=== PATIENT | female | born 1975 | race African-American/Black ===

== ENCOUNTER → 2019-04-20 11:45 | Outpatient (CLI) | payer BC, SELFPAY ==
--- NOTE | ~2019-04-20 | MR_ITS ---
EXAMINATION: MR lumbar spine wo con EXAM DATE: 04/20/2019 12:31 INDICATION: Lumbar radiculopathy. Low back pain. TECHNIQUE: Multi-sequential, multiplanar MR images of the lumbar spine were obtained without contrast . Sagittal T1, T2, T2 fat saturation images. Axial T2 weighted images. There is no prior study for comparison. FINDINGS: There are sizable hemangioma within the L1 vertebral body. Tiny annular fissure at L5-S1 wi th 2-3 mm retrolisthesis. The vertebral bodies are otherwise aligned. The vertebral body and disc hei ghts are otherwise well maintained. Paraspinal soft tissue is unremarkable. The conus medullaris term inates at the L1 level and has normal signal intensity and morphology. Level by level evaluation: T12-L1: Disc does not extend beyond the endplate margin. Facet arthropathy: Mild. Neural foraminal stenosis: No stenosis. Central canal stenosis: No stenosis. L1-L2: Disc does not extend beyond the endplate margin. Facet arthropathy: Mild. Neural foraminal stenosis: No stenosis. Central canal stenosis: No stenosis. L2-L3: Disc does not extend beyond the endplate margin. Facet arthropathy: Mild. Neural foraminal stenosis: No stenosis. Central canal stenosis: No stenosis. L3-L4: Disc does not extend beyond the endplate margin. Facet arthropathy: Mild. Neural foraminal stenosis: No stenosis. Central canal stenosis: No stenosis. L4-L5: There is a minimal diffuse disc bulge. Facet arthropathy: Mild. Neural foraminal stenosis: Minimal bilateral. Central canal stenosis: No stenosis. L5-S1: There is mild disc bulge asymmetric to the right Facet arthropathy: Mild to moderate right, mild left. Neural foraminal stenosis: Mild to moderate right, mild left. Central canal stenosis: No stenosis. IMPRESSION: 1. Overall mild lumbar spondylosis as detailed above. Reviewed, dictated and finalized at location B. 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
== END ==
PROVIDERS: Visit Provider Nurse Practitioner Adult Health
DX: M54.17 Radiculopathy, lumbosacral region (principal); M47.896 Other spondylosis, lumbar region
CPT/HCPCS: 72148

== ENCOUNTER 2019-12-04 11:44 | Outpatient (CLI) | payer BC, SELFPAY ==
--- NOTE | ~2019-12-04 | MM_ITS ---
EXAMINATION: MM screening [facility] HISTORY: Screening mammogram TECHNIQUE: Craniocaudal and mediolateral oblique 3-D tomosynthesis images were obtained and synthetic 2-D images were generated. CAD analysis was submitted and interpreted. COMPARISON: 11/03/2017 bilateral digital screening mammogram 04/23/2012 bilateral diagnostic digital mammography and right breast ultrasound; 10/22/2012 right breas t ultrasound BREAST PARENCHYMAL COMPOSITION: There are scattered areas of fibroglandular density. FINDINGS: There are 2 stable approximately 1 cm circumscribed opacity situated anteriorly in the uppe r outer quadrant of the left breast, not changed since 11/03/2017 or , likely benign lymph n odes There is no evidence of suspicious mass, calcification, or architectural distortion to suggest m alignancy in either breast. There has been no suspicious interval change. IMPRESSION: 1. No mammographic evidence of malignancy. 2. Recommend routine screening mammography in one year. BI-RADS Category 2: Benign finding(s). Reviewed, dictated and finalized at location D.
== END 2019-12-04 11:45 | disposition home or self-care (01) ==
LOC: ANHIMG 11:47
PROVIDERS: PCP Internal Medicine; Visit Provider Obstetrics & Gynecology
DX: Z12.31 Encounter for screening mammogram for malignant neoplasm of breast (principal)
CPT/HCPCS: 77063; 77067

== ENCOUNTER 2020-03-24 08:23 | Outpatient (NON) | payer BC, SELFPAY ==
[2020-03-25 00:16] LABS: SARS-CoV-2 RNA PCR Negative
== END 2020-03-24 08:24 ==
LOC: ANHCOVIDDT 08:24
PROVIDERS: PCP Internal Medicine; Visit Provider Physician Assistant
DX: R68.89 Other general symptoms and signs (principal); Z20.822 Contact with and (suspected) exposure to COVID-19
CPT/HCPCS: C9803; U0003; U0005

== ENCOUNTER 2020-12-17 17:29 | Outpatient (CLI) | payer BC, SELFPAY ==
--- NOTE | ~2020-12-17 | MM_ITS ---
EXAMINATION: MM screening [facility] BI w [place] HISTORY: Screening mammogram TECHNIQUE: Craniocaudal and mediolateral oblique 3-D tomosynthesis images were obtained and synthetic 2-D images were generated. CAD analysis was submitted and interpreted. COMPARISON: 12/04/2019, 11/03/2017, 06/24/2013 BREAST PARENCHYMAL COMPOSITION: There are scattered areas of fibroglandular density. FINDINGS: Stable bilateral breast masses are considered benign given the lack of interval change. The re is no evidence of suspicious mass, calcification, or architectural distortion to suggest malignanc y in either breast. There has been no suspicious interval change. IMPRESSION: 1. No mammographic evidence of malignancy. 2. Recommend routine screening mammography in one year. BI-RADS Category 2: Benign finding(s). Reviewed, dictated and finalized at location A.
== END 2020-12-17 17:30 | disposition home or self-care (01) ==
LOC: ANHIMG 17:31
PROVIDERS: PCP Physician Assistant; Visit Provider Obstetrics & Gynecology
DX: Z12.31 Encounter for screening mammogram for malignant neoplasm of breast (principal)
CPT/HCPCS: 77063; 77067

== ENCOUNTER 2022-01-07 13:48 | Outpatient (CLI) | payer BC, SELFPAY ==
[2022-01-07 14:20] LABS: Influenza Control Positive
[2022-01-07 14:46] LABS: SARS-CoV-2 RNA PCR Negative
== END 2022-01-07 13:49 | disposition home or self-care (01) ==
PROVIDERS: PCP Physician Assistant; Visit Provider Physician Assistant
DX: R68.89 Other general symptoms and signs (principal); Z01.812 Encounter for preprocedural laboratory examination
CPT/HCPCS: 87804; U0003; U0005

== ENCOUNTER 2022-01-29 10:57 | Emergency (ER) | payer BC, SELFPAY ==
[2022-01-29 11:47] VITALS: BP 144/83; PULSE 92; RESP 16; TEMP 36.4; O2SAT 99
--- NOTE | 2022-01-29 12:32 | ED.GENADULT ---
HPI - General Adult General Chief complaint: Upper Respiratory Infection Stated complaint: uri Time Seen by Provider: 01/29/22 12:33 Source: patient Mode of arrival: ambulatory Limitations: no limitations Related Data Home Medications Medication Instructions Recorded Confirmed multivitamin (Multiple Vitamins 1 tablet PO DAILY 02/18/19 01/14/22 tablet) vitamin E (dl, acetate) 45 mg (100 100 unit PO DAILY 02/18/19 01/14/22 unit) capsule Allergies Allergy/AdvReac Type Severity Reaction Status Date / Time Penicillins Allergy Intermediate Itching,mateo Verified 01/14/22 13:58 lucinations [facility] Past Medical History Medical History Depression Ectopic Hypertension Surgical History Surgical History H/O: hysterectomy History of tonsillectomy Previous section Social History Social History Smoking status: Never smoker Second hand tobacco smoke exposure: No Alcohol intake: never Lack of Transportation: No Lack of Food: Never True Current Housing: I Have Housing Concerned About Future Housing: No Difficulty Paying Gas/Electric Bills: No Difficulty Paying for Meds: No Currently Unemployed: No Education: Master's Degree or Higher Difficulty w/ Childcare or Family Care: No Comments At the time of my signature I agree with nursing past medical history, surgical, social, and family history. There is no relevant family history pertinent to the presenting complaint. Exam Narrative: GENERAL: Well-appearing, well-nourished, and in no acute distress. HEAD: Normocephalic, atraumatic. EYES: PERRLA and EOMI. ENT: Nares clear, no rhinorrhea or epistaxis. Mucous membranes moist. NECK: Supple. No lymphadenopathy CHEST: Clear to auscultation. No respiratory distress. HEART: Regular rate and rhythm. No murmur heard. Normal peripheral pulses. ABDOMEN: Soft, nontender, nondistended, normal active bowel sounds. EXTREMITIES: Normal range of motion. No edema. SKIN: Warm, dry, no rash. NEURO: No focal deficits. Alert and oriented x3. Course Course Level of Care: Express Care Visit Vital Signs Vital signs: Vital Signs Temperature 36.4 C L 01/29/22 11:47 Pulse Rate 92 01/29/22 11:47 Respiratory Rate 16 01/29/22 11:47 Blood Pressure 144/83 H 01/29/22 11:47 Pulse Oximetry 99 01/29/22 11:47 Oxygen Delivery Room Air 01/29/22 11:47 Temperature 36.4 C L 01/29/22 11:47 Pulse Rate 92 01/29/22 11:47 Respiratory Rate 16 01/29/22 11:47 Blood Pressure 144/83 H 01/29/22 11:47 Pulse Oximetry 99 01/29/22 11:47 Oxygen Delivery Room Air 01/29/22 11:47 Vital signs reviewed The patient has been informed that they may have pre-hypertension or Hypertension based on a BP reading in the department. I recommend that the patient call the primary care provider listed on their discharge instructions or a physician of their choice this week to arrange follow up for further evaluation of possible pre-hypertension or Hypertension Medical Decision Making Differential Diagnosis Differential Diagnosis: Differential diagnosis: Allergic rhinitis, chronic sinusitis, tonsillitis, acute sinusitis, infectious mononucleosis, seasonal influenza, pertussis, diphtheria, meningococcal disease, viral syndrome, viral bronchitis, RSV, COVID-19 Vital Signs Vital Signs: Vital Signs Temperature 36.4 C L 01/29/22 11:47 Pulse Rate 92 01/29/22 11:47 Respiratory Rate 16 01/29/22 11:47 Blood Pressure 144/83 H 01/29/22 11:47 Pulse Oximetry 99 01/29/22 11:47 Oxygen Delivery Room Air 01/29/22 11:47 Temperature 36.4 C L 01/29/22 11:47 Pulse Rate 92 01/29/22 11:47 Respiratory Rate 16 01/29/22 11:47 Blood Pressure 144/83 H 01/29/22 11:47 Pulse Oximetry 99 01/29/22 11:47 Oxygen Delivery Room A
--- NOTE | 2022-01-29 12:40 | ED.GENADULT ---
HPI - General Adult General Chief complaint: Upper Respiratory Infection Stated complaint: uri Time Seen by Provider: 01/29/22 12:33 Source: patient Mode of arrival: ambulatory Limitations: no limitations History of Present Illness HPI narrative: 6-year-old female patient to [facility] with complaints of flu-like symptoms that started last night. Patient states they were worse when she woke up today. Patient states she has had congestion, runny nose, headache, sore throat, cough, body aches and chills. Unknown if she has had a fever states she has not taken her fever. Patient states she is vaccinated against COVID but has not been vaccinated against flu yet. Denies taking any medications prior to arrival. Related Data Home Medications Medication Instructions Recorded Confirmed multivitamin (Multiple Vitamins 1 tablet PO DAILY 02/18/19 01/14/22 tablet) vitamin E (dl, acetate) 45 mg (100 100 unit PO DAILY 02/18/19 01/14/22 unit) capsule Allergies Allergy/AdvReac Type Severity Reaction Status Date / Time Penicillins Allergy Intermediate Itching,mateo Verified 01/14/22 13:58 lucinations Review of Systems Review of Systems: CONSTITUTIONAL: Denies fever, positive chills, or sweats. EYES: Denies visual changes, redness, or discharge. ENT: Positive rhinorrhea, congestion, sore throat, and otalgia. CARDIOVASCULAR: Denies chest pain, palpitations, or edema. RESPIRATORY: Positive cough, denies dyspnea. GASTROINTESTINAL: Denies abdominal pain, nausea, vomiting, or diarrhea. GENITOURINARY: Denies dysuria or hematuria. SKIN: Denies rash or itching. MUSCULOSKELETAL: Denies back pain, joint pain, or myalgia. NEUROLOGIC: Positive headache, denies numbness, or weakness. PSYCHIATRIC: Denies anxiety or depression. [facility] Past Medical History Medical History Depression Ectopic Hypertension Surgical History Surgical History H/O: hysterectomy History of tonsillectomy Previous section Social History Social History Smoking status: Never smoker Second hand tobacco smoke exposure: No Alcohol intake: never Lack of Transportation: No Lack of Food: Never True Current Housing: I Have Housing Concerned About Future Housing: No Difficulty Paying Gas/Electric Bills: No Difficulty Paying for Meds: No Currently Unemployed: No Education: Master's Degree or Higher Difficulty w/ Childcare or Family Care: No Comments At the time of my signature I agree with nursing past medical history, surgical, social, and family history. There is no relevant family history pertinent to the presenting complaint. Exam Narrative: GENERAL: ill-appearing, well-nourished, and in no acute distress. HEAD: Normocephalic, atraumatic. EYES: PERRLA and EOMI. ENT: Nares with erythema and edema noted bilaterally, no rhinorrhea or epistaxis. Mucous membranes moist. Posterior pharynx with no erythema, tonsillar edema, exudates or lesions present. There is some postnasal drip noted. NECK: Supple. No lymphadenopathy CHEST: Clear to auscultation. No respiratory distress. Patient able talk clear complete sentences. No tripoding noted. HEART: Regular rate and rhythm. No murmur heard. Normal peripheral pulses. ABDOMEN: Soft, nontender, nondistended, normal active bowel sounds. EXTREMITIES: Normal range of motion. No edema. SKIN: Warm, dry, no rash. NEURO: No focal deficits. Alert and oriented x3. Course Course Level of Care: Express Care Visit Vital Signs Vital signs: Vital Signs Temperature 36.4 C L 01/29/22 11:47 Pulse Rate 92 01/29/22 11:47 Respiratory Rate 16 01/29/22 11:47 Blood Pressure 144/83 H 01/29/22 11:47 Pulse Oximetry 99 01/29/22 11:47 Oxygen Delivery Room Air 01/29/22 11:47 Temperature 36.4 C L 01/29/22 11:4
== END 2022-01-29 13:06 | disposition home or self-care (01) ==
PROVIDERS: Emergency Provider Nurse Practitioner Family; PCP Physician Assistant
DX: U07.1 COVID-19 (principal); J02.0 Streptococcal pharyngitis; Z20.822 Contact with and (suspected) exposure to COVID-19; I10 Essential (primary) hypertension
CPT/HCPCS: 87426; 87804; 87880; 99213; C9803; G0463

== ENCOUNTER 2022-03-16 09:47 | Outpatient (CLI) | payer BC, SELFPAY ==
--- NOTE | ~2022-03-16 | MM_ITS ---
EXAMINATION: MM screening [facility] BI w [place] HISTORY: Screening mammogram TECHNIQUE: Craniocaudal and mediolateral oblique 3-D tomosynthesis images were obtained and synthetic 2-D images were generated. CAD analysis was submitted and interpreted. COMPARISON: 12/17/2020, 12/04/2019, 11/03/2017 BREAST PARENCHYMAL COMPOSITION: There are scattered areas of fibroglandular density. FINDINGS: Again noted are stable, bilateral breast masses considered benign given the lack of interva l change. No suspicious mass, calcification, or architectural distortion are identified in either catalina ast to suggest malignancy. There has been no suspicious interval change. IMPRESSION: 1. No mammographic evidence of malignancy. 2. Recommend routine screening mammography in one year. BI-RADS Category 2: Benign finding(s). Reviewed, dictated and finalized at location A. 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
== END 2022-03-16 09:48 | disposition home or self-care (01) ==
LOC: ANHIMG 09:49
PROVIDERS: PCP Physician Assistant; Visit Provider Obstetrics & Gynecology
DX: Z12.31 Encounter for screening mammogram for malignant neoplasm of breast (principal)
CPT/HCPCS: 77063; 77067

== ENCOUNTER 2022-12-08 00:44 | Day surgery (SDC) | payer BC, SELFPAY ==
[2022-11-24 14:13] VITALS: BMI 51.7
[2022-12-08 12:24] VITALS: BP 142/83; PULSE 75; RESP 20; TEMP 36.2; O2SAT 98; BMI 50.5
--- NOTE | 2022-12-08 12:26 | WPDANESEPPF ---
Anes - Initial Pre Proc Eval Procedure: Operation Date: 12/08/22 13:30 Proposed Procedures p Screening Colonoscopy - Shon Jimenez MD Date/Time: 12/08/22 12:26 Surgeon: Shon Jimenez MD Pre Op Diagnosis: neoplasm screening Patient Data Age: 47 Gender: F Height: 1.68 m Weight: 145.5 kg Allergies Allergy/AdvReac Type Severity Reaction Status Date / Time Penicillins Allergy Intermediate Itching,mateo Verified 05/06/22 11:20 lucinations Home Medications Medication Instructions Recorded Confirmed Type multivitamin (Multiple Vitamins 1 tablet PO DAILY 02/18/19 11/24/22 History tablet) potassium chloride 10 mEq 10 meq PO DAILY #90 tabs 09/20/21 11/24/22 Rx tablet,extended release fluticasone propionate 50 2 spray intranasal DAILY #15.8 mL 01/14/22 11/24/22 Rx mcg/actuation nasal spray,suspension (Flonase Allergy Relief) valacyclovir 500 mg tablet 500 mg PO DAILY #90 tabs 05/04/22 11/24/22 Rx (Valtrex) hydrochlorothiazide 25 mg tablet See Rx Instructions .Route 07/25/22 11/24/22 Rx .COMPLEX #90 tabs duloxetine 30 mg capsule,delayed 90 mg PO DAILY #270 caps 10/07/22 11/24/22 Rx release nifedipine 60 mg tablet,extended 60 mg PO DAILY #90 tabs 11/14/22 11/24/22 Rx release sodium,potassium,mag sulfates 17.5 See Rx Instructions PO .COMPLEX 11/18/22 11/24/22 Rx gram-3.13 gram-1.6 gram oral soln #354 mL (Suprep Bowel Prep Kit) semaglutide (weight loss) 2.4 2.4 mg (0.75 mL) subcut WEEKLY #3 11/21/22 11/24/22 Rx mg/0.75 mL subcutaneous pen mL injector (Pamela) Patient hx anesthesia problems: none Family hx anesthesia problems: none Results Review: All pre-operative results and documents have been reviewed as part of the pre-operative evaluation. [facility] Past Medical History Medical History Depression Ectopic Hypertension Surgical History Surgical History H/O: hysterectomy History of tonsillectomy Previous section Social History Social History Smoking status: Never smoker Second hand tobacco smoke exposure: No Alcohol intake: never Substance use: never Substance use type: does not use Lack of Transportation: No Lack of Food: Never True Current Housing: I Have Housing Concerned About Future Housing: No Difficulty Paying Gas/Electric Bills: No Difficulty Paying for Meds: No Currently Unemployed: No Education: Master's Degree or Higher Difficulty w/ Childcare or Family Care: No Living arrangements: with family Spiritual care concerns: No Anes - Eval Final PreProcedure Day of Procedure 12/08/22 12:26 Patient weight: super morbidly obese Heart: regular rate and rhythm Lungs: clear to auscultation Airway: Mallampati scale class III Neurological: alert and oriented Last oral intake: >/= 8 hours ASA classification: III Emergent: no Anesthetic plan: proceed Anesthesia type and monitoring: general GIVS and standard monitoring Results Review: All pre-operative results and documents have been reviewed as part of the pre-operative evaluation. Informed Consent: The patient's anesthetic plan and its attendant risks and benefits were discussed with the patient/family/POA. Questions were solicited and answers provided to the satisfaction of the patient/family/POA.
[2022-12-08] MEDS: LACTATED RINGERS 1,000 ML 150 ML IV CONT (12:33)
--- NOTE | 2022-12-08 12:56 | PM.HPGS ---
History of Present Illness History of Present Illness Consent: Risks, benefits, and alternatives have been discussed and questions answered. Patient agrees to proceed with procedure. Chief complaint: neoplasm screening Narrative: Amanda Chauhan is a 47 year old female Presents for screening colonoscopy. Patient's current weight appetite and bowel movements are normal. Patient denies abdominal pain. She has had no bleeding. Family history is noncontributory. [facility] Past Medical History Medical History Depression Ectopic Hypertension Surgical History Surgical History H/O: hysterectomy History of tonsillectomy Previous section Social History Social History Smoking status: Never smoker Second hand tobacco smoke exposure: No Alcohol intake: never Substance use: never Substance use type: does not use Lack of Transportation: No Lack of Food: Never True Current Housing: I Have Housing Concerned About Future Housing: No Difficulty Paying Gas/Electric Bills: No Difficulty Paying for Meds: No Currently Unemployed: No Education: Master's Degree or Higher Difficulty w/ Childcare or Family Care: No Living arrangements: with family Spiritual care concerns: No Meds Home Medications and Allergies Home Medications Medication Instructions Recorded Confirmed Type multivitamin (Multiple Vitamins 1 tablet PO DAILY 02/18/19 11/24/22 History tablet) potassium chloride 10 mEq 10 meq PO DAILY #90 tabs 09/20/21 11/24/22 Rx tablet,extended release fluticasone propionate 50 2 spray intranasal DAILY #15.8 mL 01/14/22 11/24/22 Rx mcg/actuation nasal spray,suspension (Flonase Allergy Relief) valacyclovir 500 mg tablet 500 mg PO DAILY #90 tabs 05/04/22 11/24/22 Rx (Valtrex) hydrochlorothiazide 25 mg tablet See Rx Instructions .Route 07/25/22 11/24/22 Rx .COMPLEX #90 tabs duloxetine 30 mg capsule,delayed 90 mg PO DAILY #270 caps 10/07/22 11/24/22 Rx release nifedipine 60 mg tablet,extended 60 mg PO DAILY #90 tabs 11/14/22 11/24/22 Rx release semaglutide (weight loss) 2.4 2.4 mg (0.75 mL) subcut WEEKLY #3 11/21/22 11/24/22 Rx mg/0.75 mL subcutaneous pen mL injector (Weronivy) Allergies Allergy/AdvReac Type Severity Reaction Status Date / Time Penicillins Allergy Intermediate Itching,mateo Verified 05/06/22 11:20 lucinations Vital Signs Vital Signs - 24 hr 12/08/22 12:24 Temperature 97.2 F L Pulse Rate 75 Respiratory Rate 20 Blood Pressure 142/83 H Pulse Oximetry 98 Oxygen Delivery Room Air Exam Narrative: Physical exam reveals patient to be alert. Vital signs stable. HEENT exam is unremarkable. Patient is anicteric. Lungs are clear to auscultation and percussion. Heart is without murmur or extra sounds. Abdomen bowel sounds are present soft nontender with no organomegaly. Digital external rectal exam normal. Assessment and Plan Assessment and plan (1) Encounter for screening colonoscopy: Code(s): Z12.11 - Encounter for screening for malignant neoplasm of colon Status: Acute Assessment and Plan: Patient presents today for screening colonoscopy. She appears to be at average risk for colon polyps. Further recommendations may be given after endoscopy. (2) Morbid obesity with BMI of 50.0-59.9, adult: Code(s): E66.01 - Morbid (severe) obesity due to excess calories; Z68.43 - Body mass index [BMI] 50.0-59.9, adult Status: Acute
[2022-12-08 13:47] VITALS: BP 120/63; PULSE 77; RESP 31; O2SAT 97
[2022-12-08 13:57] VITALS: BP 147/90; PULSE 78; RESP 18; O2SAT 100
[2022-12-08 14:07] VITALS: BP 150/94; PULSE 61; RESP 17; O2SAT 97
== END 2022-12-08 14:13 | disposition home or self-care (01) ==
PROVIDERS: PCP Physician Assistant; Visit Provider Internal Medicine Gastroenterology
PROC: 0DJD8ZZ Inspection of Lower Intestinal Tract, Via Natural or Artificial Opening Endoscopic (ICD-10-PCS; CPT 45378; principal; 2022-12-08 13:30)
DX: Z12.11 Encounter for screening for malignant neoplasm of colon (principal); K64.8 Other hemorrhoids; I10 Essential (primary) hypertension; F32.A Depression, unspecified; Z79.85 Long-term (current) use of injectable non-insulin antidiabetic drugs; E66.01 Morbid (severe) obesity due to excess calories; Z68.43 Body mass index [BMI] 50.0-59.9, adult
CPT/HCPCS: 45378; J2704; J7120

== ENCOUNTER 2023-03-20 09:45 | Outpatient (CLI) | payer BC, SELFPAY ==
--- NOTE | ~2023-03-20 | MM_ITS ---
EXAMINATION: MM screening [facility] BI [facility] [place] HISTORY: Screening mammogram TECHNIQUE: Craniocaudal and mediolateral oblique 3-D tomosynthesis images were obtained and synthetic 2-D images were generated. CAD analysis was submitted and interpreted. COMPARISON: 03/16/2019, 12/18/2019, 12/04/2019 BREAST PARENCHYMAL COMPOSITION: There are scattered areas of fibroglandular density. FINDINGS: Stable bilateral breast masses are considered benign given lack of interval change. No susp icious mass, calcification, or architectural distortion are identified in either breast to suggest ma lignancy. There has been no suspicious interval change. IMPRESSION: 1. No mammographic evidence of malignancy. 2. Recommend routine screening mammography in one year. BI-RADS Category 2: Benign finding(s). Reviewed, dictated and finalized at location A. 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
== END 2023-03-20 09:46 | disposition home or self-care (01) ==
LOC: ANHIMG 09:47
PROVIDERS: PCP Physician Assistant; Visit Provider Obstetrics & Gynecology
DX: Z12.31 Encounter for screening mammogram for malignant neoplasm of breast (principal)
CPT/HCPCS: 77063; 77067

== ENCOUNTER 2023-08-11 13:32 | Emergency (ER) | payer BC, SELFPAY ==
--- NOTE | ~2023-08-11 | CT_ITS ---
EXAMINATION: CT abdomen pelvis w con DATE: 08/11/2023 16:20 INDICATION: Generalized abdominal pain. Nausea and vomiting. Diarrhea. TECHNIQUE: Computed tomography (CT) of the abdomen and pelvis was performed with 100 mL Omnipaque 350 intravenous contrast. Automated exposure control and iterative reconstruction technique were employe d. The dose-length product was 1922.01 mGy-cm. COMPARISON: None. FINDINGS: The visualized portions of the lung bases demonstrate minimal atelectasis. No pleural effus ion. The heart size is normal. No pericardial effusion. The liver is normal. The gallbladder is diste nded. The spleen, pancreas, adrenal glands, and right kidney are normal. There are cysts in left kidn ey measuring up to 6 mm. There are no dilated loops of bowel. The appendix is normal. There are no pa thologically enlarged lymph nodes. There is no free intraperitoneal fluid. There is a supraumbilical ventral hernia containing fat. There is mild thoracic and lumbar spondylosis. IMPRESSION: 1. Gallbladder distention, which may be secondary to fasting. Correlate with physical exam to exclude acute cholecystitis. 2. Supraumbilical ventral hernia containing fat. Reviewed, dictated and finalized at location A. IMPRESSION: 1. Gallbladder distention, which may be secondary to fasting. Correlate with ph ysical exam to exclude acute cholecystitis. 2. Supraumbilical ventral hernia containing fat.
--- NOTE | ~2023-08-11 | US_ITS ---
EXAMINATION: US abdomen limited DATE: 08/11/2023 17:00 INDICATION: Abdominal pain. TECHNIQUE: Multiple grayscale and Doppler ultrasound images of the abdomen were obtained. COMPARISON: CT abdomen and pelvis 08/11/2023 FINDINGS: The visualized portions of the head, body, and tail of the pancreas are normal. The liver i s normal without focal lesion. There is normal flow in main portal vein. The gallbladder is distended . No visible gallstones. No gallbladder wall thickening or sonographic Moses sign. The common duct i s normal and measures 3 mm. IMPRESSION: 1. Gallbladder distention, likely secondary to fasting. Reviewed, dictated and finalized at location A.
[2023-08-11 13:35] VITALS: BP 150/81; PULSE 87; RESP 20; TEMP 36.3; O2SAT 100
[2023-08-11 14:00] VITALS: BP 137/69; O2SAT 100
[2023-08-11 14:46] VITALS: BP 160/100
[2023-08-11 14:48] LABS: Basophils Percent Auto 0.1 % (0.2-1.2); Eosinophils Absolute Auto 0.1 K/mm3 (0-0.3); Eosinophils Percent Auto 1.5 % (0-4.4); Hematocrit 44.1 % (37.0-47.0); Hemoglobin 14.1 g/dL (12.0-15.0); Immature Granulocyte Absolute 0.03 K/mm3 (0.00-0.031); Immature Granulocyte Percent A 0.3 % (0-0.5); Lymphocytes Absolute Auto 1.19 K/mm3 (0.9-3.2); Lymphocytes Percent Auto 12.8 % (18.3-44.2); Mean Corpuscular Hemoglobin 25.5 pg (26-34); Mean Corpuscular Volume 79.6 fl (80-100); Mean Platelet Volume 9.6 fl (7.4-10.4); Monocytes Absolute Auto 0.5 K/mm3 (0.1-0.6); Monocytes Percent Auto 5.3 % (2.6-8.5); Neutrophils Absolute Auto 7.4 K/mm3 (1.3-6.7); Platelet Count Result 448 k/mm3 (150-375); Red Blood Count 5.54 M/mm3 (4.2-5.4); Red Cell Distribution Width 14.7 % (11.5-14.5); White Blood Count 9.3 K/mm3 (4.5-10.0)
--- NOTE | 2023-08-11 15:28 | ED.GENADULT ---
HPI - General Adult General Chief complaint: Nausea/Vomiting/Diarrhea Stated complaint: N/V/D Time Seen by Provider: 08/11/23 14:50 History of Present Illness HPI narrative: 47-year-old female presenting to the emergency department for evaluation of persistent nausea vomiting diarrhea. Patient reports approximately 1 month ago she had an episode of nausea vomiting diarrhea. Symptoms did improve. Patient had another episode last week and symptoms improved. Patient states symptoms started last night and have persisted. Patient describes generalized abdominal pain. Patient states that her primary care physician was going to order a workup for gluten sensitivity. Patient does have a prior history hysterectomy and Related Data Home Medications Medication Instructions Recorded Confirmed multivitamin (Multiple Vitamins 1 tablet PO DAILY 02/18/19 07/31/23 tablet) Allergies Allergy/AdvReac Type Severity Reaction Status Date / Time Penicillins Allergy Intermediate Itching,mateo Verified 08/11/23 13:34 lucinations Review of Systems Review of Systems: All systems reviewed & are unremarkable except as noted in HPI and below PMFSH Past Medical History Medical History Depression Ectopic Hypertension Surgical History Surgical History H/O: hysterectomy History of tonsillectomy Previous section Social History Social History Smoking status: Never smoker Second hand tobacco smoke exposure: No Alcohol intake: never Substance use: never Substance use type: does not use Lack of Transportation: No Lack of Food: Never True Current Housing: I Have Housing Concerned About Future Housing: No Difficulty Paying Gas/Electric Bills: No Difficulty Paying for Meds: No Currently Unemployed: No Education: Master's Degree or Higher Difficulty w/ Childcare or Family Care: No Living arrangements: with family Spiritual care concerns: No Exam Narrative: APPEARANCE: Well appearing, no pain, no distress, well-nourished. HEAD: normocephalic, atraumatic. EYES: PERRLA/EOMI, conjunctivae clear. NOSE: Normal no drainage EARS:TMS clear with good light reflex. THROAT: Pharynx clear, no exudate. NECK: Supple. No adenopathy, no masses. RESPIRATORY: Airway patent, respirations nonlabored. Clear to auscultation bilaterally, no rales, rhonchi, wheezing. CARDIOVASCULAR: Regular rate and rhythm without murmurs rubs or gallops. ABDOMINAL: Diffuse abdominal tenderness, normal bowel sounds MUSCULOSKELETAL: Moves all extremities. Strength/ROM intact, No edema, No calf tenderness. NEURO: Alert. Cranial nerves II through XII intact. Good gait. Good coordination SKIN: Warm, dry. Normal Color Course Vital Signs Vital signs: Vital Signs Temperature 97.4 F L 08/11/23 13:35 Pulse Rate 87 08/11/23 13:35 Respiratory Rate 20 08/11/23 13:35 Blood Pressure 150/81 H 08/11/23 13:35 Pulse Oximetry 100 08/11/23 13:35 Oxygen Delivery Room Air 08/11/23 13:35 Temperature 97.4 F L 08/11/23 13:35 Pulse Rate 67 08/11/23 18:54 Respiratory Rate 14 08/11/23 18:54 Blood Pressure 123/78 08/11/23 18:54 Pulse Oximetry 100 08/11/23 18:54 Oxygen Delivery Room Air 08/11/23 13:35 Medical Decision Making [facility] Narrative Medical decision making narrative: 47-year-old female presenting to the emergency department for evaluation for intermittent nausea vomiting diarrhea with associated abdominal pain. CT scan was concerning for gallbladder. Ultrasound showed no abnormality with the gallbladder. Patient had no elevation of her T bili AST ALT alk-phos or lipase. UA had many squamous cells and urine culture was pending. Patient does feel improved with treatment. Patient will be disc
[2023-08-11] MEDS: HYDROmorphone HCL INJ (*CRX) 1 MG/ML SYR IV PUSH (15:41)
[2023-08-11] MEDS: ONDANSETRON INJ 4 MG/2 ML VIAL IV PUSH (15:41)
[2023-08-11] MEDS: SODIUM CHLORIDE 0.9% IV 1,000 ML 999 ML IV CONT (15:43)
[2023-08-11 15:44] LABS: Alanine Aminotransferase 14 U/L (6-35); Albumin Level 4.2 g/dL (3.5-5.1); Alkaline Phosphatase 86 U/L (38-126); Anion Gap 6 mmol/L (4-12); Aspartate Amino Transferase 31 U/L (14-36); Bilirubin,Total 0.5 mg/dL (0.2-1.3); Blood Urea Nitrogen 13 mg/dL (7-17); Carbon Dioxide 37 mmol/L (22-30); Chloride 94 mmol/L (98-107); Estimated CRCL calculation 91 ml/min; Estimated Glomerular Filt Rate > 60; Glucose 91 mg/dL (65-110); Lipase 35 U/L (23-300); Potassium 2.4 mmol/L (3.4-5.0); Sodium 137 mmol/L (137-145)
[2023-08-11 15:45] LABS: Appearance Urine Cloudy (Clear); Bacteria Urine Rare /hpf; Bilirubin Urine 1+ (Negative); Blood Urine Negative (Negative); Color Urine Dark Yellow (Yellow); Glucose Urine UA Negative (Negative); Ketones Urine Trace mg/dL (Negative); Leukocyte Esterase Ur Negative LEU/UL (Negative); Nitrate Urine Negative (Negative); Non Pathogenic Casts 0-2; Protein Urine 1+ mg/dL (Negative); Specific Grav Ur 1.028 (1.001-1.035); Squamous Epithelial Cell Urine Many /hpf (Few)
[2023-08-11 15:49] LABS: Add Urine Microscopic? YES
[2023-08-11 16:30] VITALS: O2SAT 84
[2023-08-11] MEDS: KCL 20 MEQ/SW 100 ML 100 ML 50 MEQ IVPB (16:32)
[2023-08-11] MEDS: POTASSIUM CHLORIDE 20 MEQ PACKET (FOR LIQUID) 40 MEQ PO (17:25)
[2023-08-11 18:54] VITALS: BP 123/78; PULSE 67; RESP 14; O2SAT 100
== END 2023-08-11 19:59 | disposition home or self-care (01) ==
PROVIDERS: Emergency Provider Emergency Medicine; PCP Physician Assistant
DX: R11.2 Nausea with vomiting, unspecified (principal); E87.6 Hypokalemia; I10 Essential (primary) hypertension; F32.A Depression, unspecified; Z90.710 Acquired absence of both cervix and uterus; K42.9 Umbilical hernia without obstruction or gangrene; R93.2 Abnormal findings on diagnostic imaging of liver and biliary tract
CPT/HCPCS: 36415; 74177; 76705; 80053; 81001; 83690; 85025; 87086; 96361; 96365; 96366; 96375; 99284; A9270; J1170; J2405; J3480; J7030; Q9967